=== PATIENT | female | born 1990 | race Caucasian/White ===

== ENCOUNTER 2023-03-16 19:27 | Inpatient (IN) ==
[2023-03-16] MEDS: LACTATED RINGER'S 1,000 ML IV PRN (20:00)
[2023-03-16] MEDS ORDERED: OXYTOCIN 30 UNITS/500 ML BAG IV PRN (20:01)
[2023-03-16] MEDS ORDERED: LIDOCAINE 1% LOCAL 20 ML VIAL INFIL PRN (20:01)
[2023-03-16 20:41] LABS: Hematocrit (blood only) 35.7 % (37.0-47.0); Hemoglobin 12.1 g/dl (12.0-16.0); Mean Corpuscular Hemoglobin 29.5 pg (25.0-34.0); Mean Corpuscular Hgb Conc 33.9 g/dL (32.0-36.0); Mean Corpuscular Volume 87.1 fL (80.0-100.0); Mean Platelet Volume 10.9 fL (9.4-12.4); Platelet Count 257 K/uL (130-400); RDW Coefficient of Variation 14.8 % (11.5-14.5); RDW Standard Deviation 46.9 fL (36.4-46.3); White Blood Count 14.93 K/ul (4.8-10.8)
[2023-03-17] MEDS ORDERED: LIDOCAINE 2%/EPINEPHRINE 1:200,000 20 ML PF ONE (07:32)
[2023-03-17] MEDS ORDERED: SODIUM CHLORIDE 0.9% PF INJ 10 ML VIAL ONE (07:32)
[2023-03-17] MEDS ORDERED: ePHEDrine sulfate 50 MG/ML AMP ONE (07:32)
[2023-03-17] MEDS ORDERED: BUPIVACAINE 0.25% PF 30 ML VIAL ONE (07:32)
[2023-03-17] MEDS ORDERED: fentaNYL citrate PF 100 MCG/2 ML VIAL ONE (07:32)
[2023-03-17] MEDS ORDERED: fentaNYL 2MCG/ML ROPIVACAINE 1.25MG/ML 100 ML BAG EPI ONE (07:33)
--- NOTE | 2023-03-17 07:35 | Anesthesiology Consultation ---
Date of Service March 17, 2023 Assessment & Plan (1) Encounter for pre-operative examination: Chart Review Chart Review: Acceptable Risk for Labor Epidural History Height/Weight Height: 5 ft 2 in Weight: 75.296 kg Allergies Allergy/AdvReac Type Severity Reaction Status Date / Time house dust AdvReac Sneezing Verified 03/16/23 19:45 Medications Home Medications Medication Instructions Recorded Confirmed Last Taken 1 tab PO DAILY 03/12/23 03/16/23 03/16/23 calcium 1 tab PO DAILY 03/12/23 03/16/23 03/16/23 magnesium 1 sachet PO DAILY 03/12/23 03/16/23 03/16/23 montelukast 5 mg chewable tablet 5 mg PO DAILY 03/12/23 03/16/23 03/16/23 (Singulair) fluticasone 250 mcg-salmeterol 50 1 inh inhalation BID 03/16/23 03/16/23 03/16/23 mcg/dose blistr powdr for inhalation Active Medications Generic Name Dose Route Start Last Admin Trade Name Freq PRN Reason Stop Dose Admin Lactated Ringer's 1,000 mls @ 125 mls/hr 03/16/23 20:01 03/16/23 20:34 Lr IV 03/18/23 20:00 0 mls/hr .Q8H PRN Infusion L&D Protocol Protocol Past Medical History Medical History Asthma Inhaler - daily per pt Depression Patient states had depression ten years ago but not on medication. Past Surgical History Surgical History S/P nasal surgery polyps Social History Smoking Status: Never smoker Hx Alcohol Use: No Hx Substance Use: No Physical Exam Vital Signs Last Vital Signs Temp 36.9 C 03/17/23 05:50 Pulse 96 H 03/17/23 07:03 Resp 18 03/16/23 23:04 BP 123/77 03/17/23 07:03 O2 Del Method Room Air 03/16/23 19:47 Testing Laboratory Results 03/16/23 20:18
[2023-03-17] MEDS: LACTATED RINGER'S 1,000 ML IV PRN ×2 (07:38→08:29)
[2023-03-17] MEDS ORDERED: ROPIVACAINE 0.5% PF 5 MG/ML 20 ML VIAL EPI PRN (08:46)
[2023-03-17] MEDS ORDERED: LIDOCAINE 2%/EPINEPHRINE 1:200,000 20 ML PF EPI STA (08:46)
[2023-03-17] MEDS ORDERED: BUPIVACAINE 0.25% PF 30 ML VIAL EPI STA (08:46)
[2023-03-17] MEDS ORDERED: ONDANSETRON INJ 2 MG/ML 2 ML VIAL IV PRN (08:46)
[2023-03-17] MEDS ORDERED: SODIUM CHLORIDE 0.9% PF INJ 10 ML VIAL EPI PRN (08:46)
[2023-03-17] MEDS ORDERED: fentaNYL 2MCG/ML ROPIVACAINE 1.25MG/ML 100 ML BAG EPI PRN (08:46)
[2023-03-17] MEDS ORDERED: ePHEDrine sulfate 50 MG/ML AMP IV PRN (08:46)
[2023-03-17] MEDS ORDERED: fentaNYL citrate PF 100 MCG/2 ML VIAL EPI STA (08:46)
[2023-03-17] MEDS ORDERED: NALOXONE HCL 1 MG in SODIUM CHLORIDE 0.9% 1,000 ML IV PRN (08:46)
[2023-03-17] MEDS ORDERED: LIDOCAINE 2% MPF LOCAL 5 ML VIAL EPI PRN (08:46)
[2023-03-17] MEDS ORDERED: NALOXONE HCL 0.4 MG/1 ML VIAL/CARP IV PRN (08:46)
[2023-03-17] MEDS ORDERED: SODIUM CHLORIDE 0.9% PF INJ 10 ML VIAL EPI STA (08:46)
[2023-03-17] MEDS ORDERED: BUPIVACAINE 0.25% PF 30 ML VIAL EPI PRN (08:46)
[2023-03-17] MEDS ORDERED: fentaNYL citrate PF 100 MCG/2 ML VIAL EPI PRN (08:46)
[2023-03-17] MEDS ORDERED: OXYTOCIN 30 UNITS/500 ML BAG IV PRN ×2 (09:11→16:03)
[2023-03-17] MEDS ORDERED: CALCIUM CARBONATE 500 MG CHEWABLE TAB PO PRN (12:33)
[2023-03-17] MEDS ORDERED: CALCIUM CARBONATE 500 MG CHEWABLE TAB ONE (12:35)
[2023-03-17] MEDS ORDERED: miSOPROStoL 200 MCG TAB ONE (15:27)
[2023-03-17] MEDS ORDERED: miSOPROStoL 200 MCG TAB PR ONE (16:03)
[2023-03-17] MEDS ORDERED: ACETAMINOPHEN 325 MG TAB PO PRN (16:03)
[2023-03-17] MEDS ORDERED: HYDROCORTISONE ACETATE 25 MG SUPP PR PRN (16:03)
[2023-03-17] MEDS ORDERED: BENZOCAINE 20% SPRY 85 APPLN/85 GM CAN EXT PRN (16:03)
[2023-03-17] MEDS ORDERED: DIPHTHERIA/TETANUS/PERTUSSIS Vaccine (Tdap, Age 7+yrs) 0.5mL SYR/VL IM ONE (16:03)
[2023-03-17] MEDS ORDERED: bisacodyL 10 MG SUPP PR PRN (16:03)
--- NOTE | 2023-03-17 16:55 | Anesthesia Procedure Note ---
Date of Service March 17, 2023 Anesthesia Post Epidural Note Vital Signs Vital Signs: Temp Pulse Resp BP Pulse Ox O2 Del Method 37.2 C 82 18 134/80 97 Room Air 03/17/23 14:05 03/17/23 16:47 03/17/23 16:47 03/17/23 16:47 03/17/23 15:31 03/16/23 19:47 Notes Mental Status: alert / awake / arousable and participated in evaluation Nausea / Vomiting: adequately controlled Pain: adequately controlled Airway Patency, RR, SpO2: stable & adequate BP & HR: stable & adequate Hydration State: stable & adequate Neuraxial Anesthesia: was administered and sensory block is resolving Anesthetic Complications: no major complications apparent Epidural: Removed without complications and With tip intact
[2023-03-17] MEDS: IBUPROFEN 600 MG TAB PO PRN (22:54)
[2023-03-17] MEDS: DOCUSATE SODIUM 100 MG CAP PO SCH (22:54)
[2023-03-18 06:38] LABS: Hematocrit (blood only) 31.1 % (37.0-47.0); Hemoglobin 10.3 g/dl (12.0-16.0); Mean Corpuscular Hgb Conc 33.1 g/dL (32.0-36.0); Mean Corpuscular Volume 87.6 fL (80.0-100.0); Mean Platelet Volume 10.8 fL (9.4-12.4); Platelet Count 235 K/uL (130-400); RDW Coefficient of Variation 14.9 % (11.5-14.5); RDW Standard Deviation 48.1 fL (36.4-46.3); Red Blood Count 3.55 M/uL (4.20-5.40); White Blood Count 16.96 K/ul (4.8-10.8)
[2023-03-18] MEDS ORDERED: PRENATAL VITAMIN 1 TAB PO SCH (08:00)
[2023-03-18] MEDS: DOCUSATE SODIUM 100 MG CAP PO SCH (08:37)
--- NOTE | 2023-03-18 09:06 | Obstetrical Progress Note ---
Date of Service March 18, 2023 Assessment & Plan Admission and Anticipated Discharge Date Admission Date: March 16, 2023 Subjective abdomen soft and non tender no calf tenderness ambulating well vaginal bleeding scant hgb 10.3 Results & Data Vital Signs (Past 12 Hours) Vital Signs Temp Pulse Resp BP Pulse Ox O2 Del Method 03/18/23 03:35 36.4 C L 73 16 97/60 L 97 Room Air 03/17/23 22:50 36.6 C 96 H 17 111/72 95 Room Air
--- NOTE | 2023-03-18 09:16 | Delivery Summary ---
Vaginal Delivery Summary Date of Service March 18, 2023 Vaginal Delivery Summary Patient was followed in our office for care and delivery. Patient was well dated with a first trimester ultrasound. Patient was brought in for induction at 41 weeks and 2 days gestation. At the time of admission patient was in active labor. Cervix was 6 cm dilated. Patient had spontaneous unstimulated contractions throughout the night. Membranes were ruptured at about 8 to 9 cm. At that time meconium stained fluid was noted. Patient eventually went to full dilatation with a cervical lip. It took several hours for the cervical lip to clear. Eventually she had epidural anesthesia for pain control. She was stimulated with IV Pitocin. Cervical lip eventually cleared with the IV Pitocin and epidural. At full dilatation she pushed for about 2 hours. Pushed out a live female via direct occiput anterior position over an intact perineum. was suctioned through the mouth and the nose. Shoulders were delivered without difficulty. Cord was allowed to pulse for 1 m inute. Placenta was removed spontaneously with the use of IV Pitocin. A first- degree midline perineal laceration was repaired with 2-0 Vicryl. The vaginal mucosa was approximated out to beyond the hymenal ring with a running 2-0 suture. 2 deep sutures were used to approximate the bulbocavernosus muscle. The perineal body. A running subcuticular suture was used to approximate the perineal skin edges. Vaginal exam revealed no hematoma formation or sponges in the vagina. Rectovaginal examination revealed no stitches through the rectum. Rectal Cytotec was placed at this time. Estimated blood loss was 100 mL.
[2023-03-18] MEDS ORDERED: MEASLES, MUMPS & RUBELLA VIRUS VACCINE (MMR) VIAL SQ ONE (11:50)
[2023-03-18] MEDS: IBUPROFEN 600 MG TAB PO PRN (15:33)
[2023-03-18] MEDS ORDERED: bisacodyL 5 MG TABEC PO SCH (20:00)
== END 2023-03-18 18:00 | disposition home or self-care (01) | DRG 807 ==
LOC: 4S1 19:27 → 4E2 03-17 18:00
DX: O34.43 Maternal care for other abnormalities of cervix, third trimester; Z37.0 Single live birth; O70.0 First degree perineal laceration during delivery; Z79.51 Long term (current) use of inhaled steroids; Z3A.41 41 weeks gestation of pregnancy; J45.909 Unspecified asthma, uncomplicated; O77.0 Labor and delivery complicated by meconium in amniotic fluid; Z91.048 Other nonmedicinal substance allergy status; Z79.899 Other long term (current) drug therapy; O99.52 Diseases of the respiratory system complicating childbirth